=== PATIENT | female | born 1960 | race Caucasian/White ===

== ENCOUNTER → 2023-07-23 08:04 | Outpatient (REF) | payer SELFPAY | LOC: HWRAD 08:04 | PROVIDERS: ATTENDING PHYSICIAN Physician Assistant Medical | DX: Z00.00 Encounter for general adult medical examination without abnormal findings (principal); E78.5 Hyperlipidemia, unspecified | CPT/HCPCS: 75571 ==

== ENCOUNTER → 2023-07-31 14:16 | Outpatient (REF) | payer BC, SELFPAY | LOC: HWWDC 14:16 | PROVIDERS: ATTENDING PHYSICIAN Physician Assistant Medical | DX: Z12.31 Encounter for screening mammogram for malignant neoplasm of breast (principal) | CPT/HCPCS: 77063; 77067 ==

== ENCOUNTER 2024-04-02 16:44 | Emergency (ER) | payer BC, SELFPAY ==
[2024-04-02 16:46] VITALS: BP 132/52
[2024-04-02 17:03] VITALS: BMI 21.5
[2024-04-02 17:08] VITALS: BP 125/53
[2024-04-02 17:25] LABS: Hematocrit 36.4 % (37.0-47.0); Hemoglobin 12.7 g/dL (12.0-16.0); Mean Corp Hgb Conc. 34.9 g/dL (33.0-37.0); Mean Corpuscular Hgb 32.6 pg (27.0-31.0); Mean Corpuscular Volume 93.6 fL (81.0-99.0); Mean Platelet Volume 11.7 fL (7.4-10.4); Platelet Count 183 10^3/uL (130-400); Red Blood Cell Count 3.89 10^6/uL (4.20-5.40); White Blood Cell Count 6.5 10^3/uL (4.8-10.8)
[2024-04-02 17:31] LABS: Urine Albumin Negative (Neg - Trace); Urine Bilirubin Negative (Negative); Urine Character Clear (Clear); Urine Color Yellow; Urine Glucose Negative (Negative); Urine Ketone Negative (Negative); Urine Leukocyte Negative (Negative); Urine Nitrite Negative (Negative); Urine Occult Blood Negative (Negative); Urine Urobilinogen Negative (Neg - 1+)
[2024-04-02 17:33] LABS: Blood Urea Nitrogen 8 mg/dl (7-17); Calcium 9.7 mg/dl (8.4-10.2); Carbon Dioxide 27 mmol/L (22-30); Chloride 103 mmol/L (98-107); Estimated Creatinine Clearance 77 ml/min; Glucose 83 mg/dl (70-99); Lipase 172 U/L (23-300); Sodium 139 mmol/L (135-145); eGFR > 60.00
[2024-04-02 17:42] LABS: % Basophils 0.9 % (0-2); % Eosinophils 1.4 % (0-6); % Immature Granulocytes 0.2 % (0-0.5); % Lymphocytes 50.9 % (20.5-51.1); % Monocytes 8.2 % (1.7-9.3); % Neutrophils 38.4 % (42.2-75.2); Absolute Basophils 0.1 10^3/uL (0-0.2); Absolute Eosinophils 0.1 10^3/uL (0-0.7); Absolute Lymphocytes 3.3 10^3/uL (1.2-3.4); Absolute Monocytes 0.5 10^3/uL (0.1-0.6); Absolute Neutrophils 2.5 10^3/uL (1.4-6.5); Nucleated Red Blood Cells % 0 %
--- NOTE | 2024-04-02 17:44 | ED.GENMED ---
History of Present Illness
<Cristi Bose PA-C - Last Filed: 04/02/24 20:56>
General
Chief Complaint: Abdominal Pain
Source: patient
Exam Limitations: none
Time Seen by Provider: 04/02/24 17:28
History of Present Illness
History of Present Illness:
63-year-old female with history of diverticulitis, small bowel intestinal overgrowth, appendectomy with cecectomy presents with abdominal discomfort worsening over the past several days with associated nausea but no vomiting. There has been no
fever. She had a small bowel movement this morning. She denies any diarrhea or urinary symptoms. No flank pain. No other complaints at this time
Past History
<NICK Fung Last Filed: 04/02/24 20:56>
Past History
ED Past Medical History: GERD, Hypercholesterolemia, Hypothyroidism and Other (Diverticulosis, Sleep apnea)
ED Past Surgical History: Appendectomy, (X 2), Gynecological (Hysterectomy), Orthopedic (right knee replacement) and Other (Hemithyroidectomy, Bunionectomy)
Social History
Tobacco: Former smoker
Alcohol: Occasional
Drug: None
Personal:
Living: with family
Employment: Retired
Phy Exam
<NICK Fung Last Filed: 04/02/24 20:56>
Physical Exam
Physical Exam:
General: Well-appearing nontoxic female no acute respiratory distress
HEENT: Normocephalic atraumatic
Heart: Regular rate and rhythm no murmurs
Lungs: Clear no wheeze abdomen soft slightly tender to the right mid abdomen no guarding or rebound
Extremities: No cyanosis
Skin: Warm no rash
Course
<NICK Fung Last Filed: 04/02/24 20:56>
Orders/Labs/Results
Orders:
Orders
04/02/24 17:04
Basic Metabolic Panel Urgent
Complete Blood Count/With Diff Urgent
Lipase Urgent
Urinalysis Reflex To Culture Urgent
Date Specimen was Collected: 04/02/24
Time Specimen was Collected: 16:53
04/02/24 17:40
CT Abd/pel W Iv And Oral Contr Urgent
Comment:
Reason For Exam: abdominal pain, history of cecectomy/diverticuliti
Iohexol [Omnipaque] See Protocol PO NOW STA
Abnormal Lab Results
04/02/24
17:04
RBC 3.89 L 10^6/uL
(4.20-5.40)
Hct 36.4 L %
(37.0-47.0)
MCH 32.6 H pg
(27.0-31.0)
MPV 11.7 H fL
(7.4-10.4)
Neutrophils % 38.4 L %
(42.2-75.2)
04/02/24 17:04
04/02/24 17:04
Vital Signs
Initial and Last Documented VS:
Initial Vital Signs
Temp Pulse Resp BP Pulse Ox
98.0 F 61 17 132/52 99
04/02/24 16:46 04/02/24 16:46 04/02/24 16:46 04/02/24 16:46 04/02/24 16:46
Last Documented Vital Signs
Temp Pulse Resp BP Pulse Ox
97.7 F 65 17 116/48 100
04/02/24 20:16 04/02/24 20:10 04/02/24 16:46 04/02/24 20:10 04/02/24 20:10
<Fer Fair, DO - Last Filed: 04/02/24 18:05>
Orders/Labs/Results
Orders:
Orders
04/02/24 17:04
Basic Metabolic Panel Urgent
Complete Blood Count/With Diff Urgent
Lipase Urgent
Urinalysis Reflex To Culture Urgent
Date Specimen was Collected: 04/02/24
Time Specimen was Collected: 16:53
04/02/24 17:40
CT Abd/pel W Iv And Oral Contr Urgent
Comment:
Reason For Exam: abdominal pain, history of cecectomy/diverticuliti
Iohexol [Omnipaque] See Protocol PO NOW STA
Abnormal Lab Results
04/02/24
17:04
RBC 3.89 L 10^6/uL
(4.20-5.40)
Hct 36.4 L %
(37.0-47.0)
MCH 32.6 H pg
(27.0-31.0)
MPV 11.7 H fL
(7.4-10.4)
Neutrophils % 38.4 L %
(42.2-75.2)
04/02/24 17:04
04/02/24 17:04
Vital Signs
Initial and Last Documented VS:
Initial Vital Signs
Temp Pulse Resp BP Pulse Ox
98.0 F 61 17 132/52 99
04/02/24 16:46 04/02/24 16:46 04/02/24 16:46 04/02/24 16:46 04/02/24 16:46
Last Documented Vital Signs
Temp Pulse Resp BP Pulse Ox
97.7 F 65 17 116/48 100
04/02/24 20:16 04/02/24 20:10 04/02/24 16:46 04/02/24 20:10 04/02/24 20:10
Gersonlt;Cristi Bose PA-C - Last Filed: 04/02/24 20:56>
MDM/Problems Addressed
Differential Diagnosis Includes:
Abdominal pain. This is acute. Differential could include constipation versus viral illness versus diverticulitis versus bowel obstruction
Labs reviewed and are negative for acute significant finding.
Patient does have history of abdominal issues which complicate today's care. Will order CT of abdomen with IV and oral contrast
<Cristi Bose PA-C - Last Filed: 04/02/24 20:56>
*Critical Care Note
Total Time (30-74mins, 75-104mins- exclusive of procedures): Not Applicable
<Cristi Bose PA-C - Last Filed: 04/02/24 20:56>
Update Note
Update Note:
CT reviewed and negative for acute finding. Patient reassured. Recommend she follow-up with her GI team for further evaluation. Labs reviewed without significant finding
ED Attending Note
<Cristi Bose PA-C - Last Filed: 04/02/24 20:56>
-
Portions of this chart may have been created with voice recognition software.� Occasional wrong word or��sound alike� substitutions may have occurred due to the inherent limitations of voice recognition software.
<Fer Fair DO - Last Filed: 04/02/24 18:05>
ED Attending Note
Patient seen and examined by attending physician: Yes
I performed the substantive portion of visit, reviewed & personally made and approve the management plan that is documented in note by myself or STALIN.: Yes
ED Attending Note:
I have seen and evaluated the patient with a [id number] encounter. I have spoken to the advance practicer provider and involved in the medical history, the physical exam, medical decision making.
Evaluation and management service: agree unless noted differently below.
Results interpretation: agree unless noted differently below.
Focused HPI: 63-year-old female presenting with left lower quadrant pain. Patient has a history of diverticulitis, small intestinal bacterial overgrowth and constipation. Patient states she just wants to make sure that this is not diverticulitis
Physical exam: Sitting bed comfortably. Very mild left lower quadrant tenderness
Medical Decision Making: Given her history, will obtain CT to rule out acute diverticulitis versus other pathology. Patient is requesting that we do not empirically start antibiotics. She is comfortable with being discharged with a prescription of
antibiotics if there is mild diverticulitis. She states she will discuss her symptoms with her [facility] team
Discharge Plan
Departure
Patient Disposition: Home (Routine Discharge)
Date of Disposition: 04/02/24
Time of Disposition: 20:55
Patient with high blood pressure during this ER visit?: No
Discharge Problem:
Abdominal pain
Instructions: Abdominal Pain
Prescriptions:
No Action
levothyroxine 50 MCG tablet
50 mcg PO DAILY
biotin 5 MG capsule
5,000 mg PO QTUTH
Align 4 mg Capsule
4 mg PO DAILY
sennosides [senna] 8.6 mg Tablet
17.2 mg PO HS
famotidine 20 mg Tablet
20 mg PO BID
magnesium citrate 125 mg Capsule
250 mg PO DAILY
Referrals:
Claudine Rivera MD [Family Provider] -
Activity Restrictions/Additional Instructions:
Please return here for worsening symptoms otherwise follow-up with your GI team
Interventions
Interventions:
*Risk Screen - Suicide Last Done: 04/02/24 16:48
*General Assessment Last Done: 04/02/24 16:50
*Neglect/Abuse Screening Last Done: 04/02/24 16:48
ED- Fall Risk Assessment Last Done: 04/02/24 17:03
*ED COVID-19 Vaccine History Last Done: 04/02/24 17:03
ZL-Chsfcw-Efjhkjxrjj Assessment Last Done: 04/02/24 17:03
Discharge Date and Time
Print Language: BENGALI
[2024-04-02] MEDS: OMNIPAQUE 50 ML PO (17:46)
[2024-04-02 18:00] VITALS: BP 117/69
[2024-04-02 20:10] VITALS: BP 116/48
[2024-04-02 21:04] VITALS: BP 117/62
== END 2024-04-02 21:30 | disposition home or self-care (01) ==
LOC: EMR 16:44
PROVIDERS: Emergency Medicine; EMERGENCY PHYSICIAN Student in an Organized Health Care Education/Training Program; FAMILY PHYSICIAN Family Medicine
DX: R10.32 Left lower quadrant pain (principal); Z87.891 Personal history of nicotine dependence
CPT/HCPCS: 99285; 74177; 80048; 81003; 83690; 85025; Q9967

== ENCOUNTER → 2024-06-29 14:45 | Outpatient (REF) | payer BC, SELFPAY | LOC: HWRAD 14:45 | PROVIDERS: ATTENDING PHYSICIAN Orthopaedic Surgery Hand Surgery; FAMILY PHYSICIAN Family Medicine | DX: M79.642 Pain in left hand (principal) | CPT/HCPCS: 76882 ==

== ENCOUNTER → 2024-08-24 16:43 | Outpatient (REF) | payer BC, SELFPAY | LOC: WDC 16:43 | PROVIDERS: ATTENDING PHYSICIAN Obstetrics & Gynecology Gynecology; FAMILY PHYSICIAN Family Medicine | DX: Z12.31 Encounter for screening mammogram for malignant neoplasm of breast (principal) | CPT/HCPCS: 77063; 77067 ==

== ENCOUNTER → 2024-09-01 08:39 | Outpatient (REF) | payer BC, SELFPAY | LOC: HWRAD 08:39 | PROVIDERS: ATTENDING PHYSICIAN Family Medicine | DX: Z87.891 Personal history of nicotine dependence (principal) | CPT/HCPCS: 71271 ==

== ENCOUNTER → 2024-09-15 10:20 | Outpatient (REF) | payer BC, SELFPAY | LOC: RAD 10:20 | PROVIDERS: ATTENDING PHYSICIAN Family Medicine | DX: Z78.0 Asymptomatic menopausal state (principal) | CPT/HCPCS: 77080 ==

== ENCOUNTER → 2024-10-12 11:22 | Outpatient (REF) | payer BC, SELFPAY | LOC: WDC 11:22 | PROVIDERS: ATTENDING PHYSICIAN Obstetrics & Gynecology Gynecology; FAMILY PHYSICIAN Family Medicine | DX: R92.2 Inconclusive mammogram (principal) | CPT/HCPCS: 76641 ==

== ENCOUNTER → 2025-05-23 19:37 | Outpatient (REF) | payer MEDICARE, SELFPAY | LOC: MRI 3T 19:37 | PROVIDERS: ATTENDING PHYSICIAN Physical Medicine & Rehabilitation; FAMILY PHYSICIAN Family Medicine | DX: M54.16 Radiculopathy, lumbar region (principal) | CPT/HCPCS: 72148 ==